=== PATIENT | female | born 1930 | race Caucasian/White ===

== ENCOUNTER 2016-09-26 17:57 | Emergency (ER) | payer OTHER, MEDICAID ==
[~2016-09-26] VITALS: Ht 152.4 cm; Wt 49.9 kg
[~2016-09-26 17:57] MED LIST: AML5T PO; FAM20T PO; GLIP5TAB77; LEV500T PO; LEVO25TA6 PO; LOSA100T27 PO; NOR10T PO; ONDA4TAB5; SIMV10TA84 PO; TRAZ100T2 PO
[2016-09-26] MEDS ORDERED: SODIUM CHLORIDE 0.9% 1,000 ML IV ONE (19:58)
[2016-09-26 20:51] LABS: Albumin 3.5 g/dL (3.4-5.0); BUN/Creatinine Ratio 29.6; Calcium 8.4 mg/dL (8.5-10.1); Magnesium 2.6 mg/dL (1.6-2.6)
[2016-09-26 20:54] LABS: Bilirubin, Total 0.7 mg/dL (0.2-1.0); Total Protein 7.4 g/dL (6.4-8.2)
[2016-09-26 20:55] LABS: Basophils # (auto) 0 uL; Basophils % (auto) 0.1 % (0.0-2.0); Eosinophils # (auto) 0.1 uL; Eosinophils % (auto) 1.7 % (0.0-7.0); Hematocrit 33.3 % (36.0-46.0); Hemoglobin 11.1 g/dL (12.2-16.2); Lymphocytes # (auto) 0.5 uL; Lymphocytes % (auto) 12.3 % (10.0-50.0); Mean Corpuscular Hemoglobin 33.3 pg (28.0-32.0); Mean Corpuscular Hgb Conc. 33.3 g/dL (32.0-36.0); Mean Corpuscular Volume 99.7 fL (80.0-100.0); Mean Platelet Volume 7.4 fL (7.4-10.4); Monocytes # (auto) 0.5 uL; Monocytes % (auto) 11.2 % (0.0-12.0); Neutrophils # (auto) 3.1 uL; Neutrophils % (auto) 74.7 % (37.0-80.0); Platelet Count (auto) 85 10^3/uL (140-450); Red Cell Distribution Width 14.4 % (11.6-16.0); White Blood Cell 4.1 10^3/uL (4.4-10.8)
[2016-09-26 21:09] LABS: INR 1.14 (0.9-1.15); Partial Thromboplastin Time 25.9 sec (22.64-33.71); Prothrombin Time 11.7 sec (9.37-12.3)
[2016-09-26 21:29] LABS: B-Type Natriuretic Peptide 151.13 pg/mL (0-100)
[2016-09-26 21:30] LABS: Temperature: 23.4 C (20.0-25.0)
[2016-09-26] MEDS ORDERED: LACTULOSE 20Gm/30ML SOLN PO ONE (22:30)
[2016-09-26 23:06] LABS: Urine Bilirubin Negative (Negative); Urine Blood Negative /uL (Negative); Urine Color Yellow (Yellow); Urine Glucose Normal (Normal); Urine Ketone Negative (Negative); Urine Nitrite Negative (Negative); Urine RBC 4 /hpf (0 - 4); Urine Urobilinogen Normal (Negative); Urine pH 6.5 (5.0-8.0)
[2016-09-26 23:48] VITALS: BP 128/71
== END 2016-09-27 00:27 | disposition short-term general hospital (02) ==
LOC: EDUNIT# 17:57 → ER 18:58
DX: G93.41 Metabolic encephalopathy (principal); K72.90 Hepatic failure, unspecified without coma; E86.0 Dehydration; N28.9 Disorder of kidney and ureter, unspecified; D61.818 Other pancytopenia; I50.9 Heart failure, unspecified; J44.9 Chronic obstructive pulmonary disease, unspecified; M19.90 Unspecified osteoarthritis, unspecified site; E78.5 Hyperlipidemia, unspecified; Z86.73 Personal history of transient ischemic attack (TIA), and cerebral infarction without residual deficits; Z90.49 Acquired absence of other specified parts of digestive tract; Z88.8 Allergy status to other drugs, medicaments and biological substances; Z88.1 Allergy status to other antibiotic agents; Z98.890 Other specified postprocedural states
CPT/HCPCS: 36415; 51702; 70450; 71010; 80053; 81001; 82140; 82962; 83735; 83880; 84484; 85025; 85610; 85730; 93005; 96360

== ENCOUNTER 2016-10-05 21:55 | Emergency (ER) | payer OTHER, MEDICAID ==
[~2016-10-05] VITALS: Ht 149.9 cm; Wt 49.9 kg
[2016-10-05 22:43] LABS: Basophils # (auto) 0 uL; Basophils % (auto) 0.1 % (0.0-2.0); DEFINITIVE VIEW TRANSMISSION; Eosinophils # (auto) 0.1 uL; Eosinophils % (auto) 1.9 % (0.0-7.0); Hematocrit 32.9 % (36.0-46.0); Hemoglobin 10.9 g/dL (12.2-16.2); Lymphocytes % (auto) 14.4 % (10.0-50.0); Mean Corpuscular Hemoglobin 33.7 pg (28.0-32.0); Mean Platelet Volume 7.5 fL (7.4-10.4); Monocytes # (auto) 0.9 uL; Neutrophils # (auto) 5.1 uL; Neutrophils % (auto) 71.6 % (37.0-80.0); Platelet Count (auto) 123 10^3/uL (140-450); Red Cell Distribution Width 14.8 % (11.6-16.0); White Blood Cell 7.2 10^3/uL (4.4-10.8)
[2016-10-05 22:52] LABS: Albumin 3.5 g/dL (3.4-5.0); BUN/Creatinine Ratio 15.6; Bilirubin, Total 0.9 mg/dL (0.2-1.0); Calcium 8.7 mg/dL (8.5-10.1); Magnesium 3.4 mg/dL (1.6-2.6); Total Protein 7.2 g/dL (6.4-8.2)
[2016-10-05 23:04] LABS: INR 1.14 (0.9-1.15); Partial Thromboplastin Time 27.5 sec (22.64-33.71); Prothrombin Time 11.7 sec (9.37-12.3)
[2016-10-05 23:15] LABS: Potassium 6.9 mmol/L (3.5-5.1)
[2016-10-05] MEDS ORDERED: CALCIUM GLUC 4.65 MEQ/10ML IV ONE (23:23)
[2016-10-05] MEDS ORDERED: InsuLIN REG 1unit/0.01ml Soln (100units/ml) IV ONE (23:30)
[2016-10-05] MEDS ORDERED: SODIUM CHLORIDE 0.9% 1,000 ML IV ONE (23:30)
[2016-10-05] MEDS ORDERED: SODIUM POLYSTYRENE SULF 15GM/60ML SUSP PO ONE (23:30)
[2016-10-05] MEDS ORDERED: SODIUM BICARBONATE 8.4 % INJ 50ML VIAL IV ONE (23:30)
[2016-10-05] MEDS ORDERED: DEXTROSE (50%) 50ML SYRG IV ONE (23:30)
[2016-10-05] MEDS ORDERED: ALBUTEROL SULF 2.5 MG/0.5ML(0.5%) NEB SOLN NEB ONE (23:30)
[2016-10-05 23:31] LABS: B-Type Natriuretic Peptide 2288.32 pg/mL (0-100); Temperature: 20.9 C (20.0-25.0)
[2016-10-05] MEDS ORDERED: CALCIUM GLUC 4.65 MEQ/10ML 4.65 MEQ in SODIUM CHL 0.9% 50 ML IV ONE (23:45)
[2016-10-06] MEDS ORDERED: cefTRIAXone 1GM/50ML D5W 50 ML IV ONE (02:45)
[2016-10-06] MEDS ORDERED: SODIUM POLYSTYRENE SULF 15GM/60ML SUSP PO ONE (06:00)
[2016-10-06 09:46] VITALS: BP 99/45
== END 2016-10-06 10:29 | disposition short-term general hospital (02) ==
LOC: ER 22:08
DX: I11.0 Hypertensive heart disease with heart failure (principal); I50.9 Heart failure, unspecified; N17.9 Acute kidney failure, unspecified; R00.1 Bradycardia, unspecified; E87.5 Hyperkalemia; R91.8 Other nonspecific abnormal finding of lung field; J90 Pleural effusion, not elsewhere classified; D50.9 Iron deficiency anemia, unspecified; M19.90 Unspecified osteoarthritis, unspecified site; J44.9 Chronic obstructive pulmonary disease, unspecified; F03.90 Unspecified dementia, unspecified severity, without behavioral disturbance, psychotic disturbance, mood disturbance, and anxiety; Z86.73 Personal history of transient ischemic attack (TIA), and cerebral infarction without residual deficits; Z88.8 Allergy status to other drugs, medicaments and biological substances; Z88.1 Allergy status to other antibiotic agents
CPT/HCPCS: 36415; 71010; 80053; 82962; 83735; 83880; 84132; 84484; 85025; 85049; 85379; 85610; 85730; 87040; 93005; 94640; 94761; 96361; 96365; 96366; 96375; 99285; J0610; J0696; J7030; J7042